=== PATIENT | female | born 1955 | race Caucasian/White ===

== ENCOUNTER 2020-10-14 16:39 | Outpatient (CLI) | payer OTHER, MEDICAID | END 2020-10-14 16:40 | disposition short-term general hospital (02) | LOC: EMS 16:39 | PROVIDERS: ATTEND Surgery | DX: R06.02 Shortness of breath (principal); R53.1 Weakness | CPT/HCPCS: A0425; A0427 ==

== ENCOUNTER 2023-03-30 19:29 | Emergency (ER) | payer MEDICAID, MEDICARE, OTHER ==
[2023-03-30 19:42] VITALS: BP 172/104
[2023-03-30] MEDS ORDERED: AMOX/CLAV 875 MG/125 MG TABLET PO STA (19:45)
[2023-03-30] MEDS ORDERED: BACITRACIN ZINC OINT 1 PACKET TOP STA (19:45)
[2023-03-30] MEDS ORDERED: TETANUS/DIPHTHERIA/PERTUSSIS 0.5 ML SYRINGE IM ONE (19:45)
--- NOTE | 2023-03-30 19:48 | ED Physician Documentation ---
History of Present Illness - Stated complaint Stated Complaint: LT/RT HAND DOG BITE - Chief complaint Chief Complaint: Laceration - Additonal information Additional information: 67-year-old female presents emergency department for evaluation of dog bites to both hands. She reports that she was walking her dog When another dog in the neighborhood which is a [place] short haired ran towards her dog and began to attack it. The dog then attacked her. The neighbor had to pull the dog off of her. She presents with dog bite puncture wounds mostly to the distal tips of both hands. Uncertain of last tetanus. She is right-hand dominant. Review of Systems Constitutional: reports: Reviewed and negative Skin: reports: Laceration (s) Musculoskeletal: reports: Extremity pain PD PAST MEDICAL HISTORY - Present Medications Home Medications: Ambulatory Orders Medication Instructions Recorded Confirmed Amox/Clav 875/125 [Augmentin] 1 each PO Q12H #14 tablet 03/30/23 Atorvastatin Calcium [Atorvaliq] 20 mg PO DAILY 03/30/23 03/30/23 Famotidine 40 mg PO DAILY 03/30/23 03/30/23 Losartan Potassium 25 mg PO DAILY 03/30/23 03/30/23 - Allergies Allergies/Adverse Reactions: Allergies Allergy/AdvReac Type Severity Reaction Status Date / Time No Known Drug Allergies Allergy Verified 03/30/23 19:39 PD ED PE EXPANDED - Extremities Extremities: Right hand (Superficial bite wounds on the dorsum of the right hand distal tip index finger and middle finger. Normal movement of the hand and fingers. 2+ radial pulse. NVI.), Left hand (V shaped lac on the dorsum of the left index finger just proximal to the cuticle. Surrounding swelling and ecchymosis. Patient does have preserved flexion extension at DIP joint.) Results - Vitals Vitals: Vital Signs - 24 hr 03/30/23 19:35 Temperature 3.0 C L Heart Rate 86 Respiratory 18 Rate Blood Pressure 172/104 H O2 Saturation 100 Oxygen O2 Source Room air - Rads (name of study) left hand xr Relevant Findings:: Final report received (No acute bony abnormality. No radiopaque foreign bodies) right hand xr Relevant Findings:: Final report received (No acute right hand fracture or dislocation. No radiopaque foreign bodies) Procedures - Laceration (location) ring finger left Wound type: Flap, Into subcut fat, Clean Neurovascular status: Sensory intact, Motor intact Tendon involvement: Tendon intact Anesthesia: Lidocaine 1% Wound preparation: Chlorhexadine, Irrigated copiously NS Skin layer closure: Interrupted, Size #-0 - enter number (4), Sutures - enter # (2) Other: Patient tolerated well, Tetanus booster given, Other (V-shaped lack on the dorsum left ring finger proximal to the cuticle was tacked down with 2 interrupted sutures) PD Medical Decision Making - ED course Complexity details: reviewed results, d/w patient ED course: 67-year-old female here with dog bite lacerations and puncture wounds to her hands after she was attacked this afternoon by neighbors dog. Animal control report has been made. Tetanus was updated today. X-rays reveal no obvious fractures and patient has preserved movement flexion extension of all digits. There is no evidence of tendon injury. Most significant wound was a V-shaped lack on the left index finger dorsum proximal to the cuticle. It was thoroughly cleansed and tacked down with 2 sutures. Her right hand has some more superficial bite and puncture wounds on the index and middle finger. Patient was given her first dose of Augmentin here and will be discharged with a week prescription. We discussed usual routine wound care and emergent return precautions for concerns of infection Departure - Departure Disposition: 01 Home, Self Care Clinical Impression: Open wound of left index finger due to dog bite, Open wound of right index finger due to dog bite Condition: Stable Record reviewed to determine appropriate education?: Yes Instructions: ED Bite Dog Prescriptions: Amox/Clav 875/125 [Augmentin] 1 each PO Q12H #14 tablet Comments: I am sorry that you were attacked by the dog today. An animal control report has been made. The dog bite wound on your ring finger left hand should have the sutures removed in 7 to 10 days. With regards to all your dog bite and puncture wounds I recommend that you gently wash them once daily with warm soap and water and then apply bacitracin ointment and a simple bandage. These will take 1 to 2 weeks to heal. Dog bite wounds and puncture wounds do carry a higher risk of infection. Therefore if you develop fevers, have increased redness milky drainage or any concerns of infection please return immediately to the ER. In order to help prevent infection we are starting you on an antibiotic, Augmentin, which she will take twice daily for the next week. Your first dose was given today in the ER. The prescription has been sent to [facility] in [place].
--- NOTE | 2023-03-30 20:16 | XRAY Report ---
PROCEDURE: Hand 2 View RT INDICATIONS: dog bite TECHNIQUE: 2 views of the hand(s) acquired. COMPARISON: None. FINDINGS: Bones: No acute fractures or dislocations. Old injury involving ulnar styloid tip is seen. No suspic ious bony lesions. Soft tissues: No suspicious soft tissue calcifications or masses. IMPRESSION: No acute right hip fracture or dislocation. No radiopaque foreign bodies. Reviewed by: Oscar Martin MD on 03/30/2023 8:15 PM PDT Approved by: Oscar Martin MD on 03/30/2023 8:15 PM PDT Station ID: [id number]
--- NOTE | 2023-03-30 20:16 | XRAY Report ---
PROCEDURE: Hand 2 View LT INDICATIONS: dog bite TECHNIQUE: 2 views of the hand(s) acquired. COMPARISON: None. FINDINGS: Bones: No fractures or dislocations. No suspicious bony lesions. Soft tissues: No suspicious soft tissue calcifications or masses. IMPRESSION: No acute bony abnormality. No radiopaque foreign bodies. Reviewed by: Oscar Martin MD on 03/30/2023 8:15 PM PDT Approved by: Oscar Martin MD on 03/30/2023 8:15 PM PDT Station ID: [id number]
== END 2023-03-30 20:00 | disposition home or self-care (01) ==
LOC: ED 19:29
DX: S61.211A Laceration without foreign body of left index finger without damage to nail, initial encounter (principal); S61.250A Open bite of right index finger without damage to nail, initial encounter; W54.0XXA Bitten by dog, initial encounter; Y93.K1 Activity, walking an animal
CPT/HCPCS: 12001; 73120; 90471; 90715; 99283; A9270

== ENCOUNTER 2023-05-23 14:07 | Outpatient (CLI) | payer MEDICARE ==
[2023-05-23 20:02] LABS: BASOPHILS # (AUTO) 0.1 10^3/uL (0.0-0.1); BASOPHILS % (AUTO) 0.8 %; EOSINOPHILS # (AUTO) 0.1 10^3/uL (0.0-0.7); HCT - HEMATOCRIT 38.6 % (37.0-47.0); HGB - HEMOGLOBIN 12.3 g/dL (12.0-16.0); LYMPHOCYTES # (AUTO) 1.9 10^3/uL (1.5-3.5); LYMPHOCYTES % (AUTO) 30.9 %; MEAN CORPUSCULAR HEMOGLOBIN 29.9 pg (27.0-31.0); MEAN CORPUSCULAR HGB CONC 31.9 g/dL (32.0-36.0); MEAN CORPUSCULAR VOLUME 93.9 fL (81.0-99.0); MEAN PLATELET VOLUME 10.3 fL (7.9-10.8); MONOCYTES # (AUTO) 0.7 10^3/uL (0.0-1.0); NEUTROPHILS # (AUTO) 3.3 10^3/uL (1.5-6.6); NEUTROPHILS % (AUTO) 54.1 %; PLT - PLATELET COUNT 241 10^3/uL (130-450); RED BLOOD COUNT 4.11 10^6/uL (4.20-5.40); RED CELL DISTRIBUTION WIDTH 12.4 % (12.0-15.0); WHITE BLOOD COUNT 6.1 x10^3/uL (4.8-10.8)
[2023-05-23 20:10] LABS: ALBUMIN 4.2 g/dL (3.2-5.5); ALBUMIN/GLOBULIN RATIO 1.8 (1.0-2.2); BILIRUBIN,TOTAL 0.2 mg/dL (0.2-1.0); CALCIUM 9.3 mg/dL (8.5-10.3); CREATININE 0.6 mg/dL (0.6-1.3); POTASSIUM 4.2 mmol/L (3.5-4.5); TOTAL PROTEIN 6.6 g/dL (6.4-8.9)
[2023-05-23 20:11] LABS: BILIRUBIN,URINE NEGATIVE (NEGATIVE); GLUCOSE, URINE (UA) NEGATIVE (NEGATIVE); KETONES,URINE (UA) NEGATIVE (NEGATIVE); LEUKOCYTE ESTERASE, URINE NEGATIVE (NEGATIVE); NITRITE,URINE NEGATIVE (NEGATIVE); OCCULT BLOOD,URINE NEGATIVE (NEGATIVE); PROTEIN,URINE NEGATIVE (NEGATIVE); UROBILINOGEN,URINE 0.2 (NORMAL) E.U./dL (NORMAL)
[2023-05-23 20:15] LABS: CLARITY,URINE CLOUDY (CLEAR)
[2023-05-23 20:32] LABS: RBC,URINE None Seen /HPF (0-5); SQUAMOUS EPITHELIAL CELL,UR RARE Squamous (<= Few); WBC,URINE 0-3 /HPF (0-5)
[2023-05-23 20:33] LABS: AMORPHOUS SEDIMENT,UR Marked /LPF; BACTERIA,URINE None Seen /HPF (None Seen)
== END 2023-05-23 14:08 | disposition home or self-care (01) ==
LOC: LAB.S 14:07
PROVIDERS: ATTEND Emergency Medicine
DX: R19.7 Diarrhea, unspecified (principal); R10.31 Right lower quadrant pain
CPT/HCPCS: 36415; 80053; 81001; 83690; 85025; 87086

== ENCOUNTER 2023-05-29 11:42 | Emergency (ER) | payer MEDICARE ==
[2023-05-29 12:11] LABS: BILIRUBIN,URINE NEGATIVE (NEGATIVE); GLUCOSE, URINE (UA) NEGATIVE (NEGATIVE); KETONES,URINE (UA) TRACE mg/dL (NEGATIVE); LEUKOCYTE ESTERASE, URINE NEGATIVE (NEGATIVE); NITRITE,URINE NEGATIVE (NEGATIVE); OCCULT BLOOD,URINE NEGATIVE (NEGATIVE); PH,URINE 6.5 PH (5.0-7.5); PROTEIN,URINE NEGATIVE (NEGATIVE); UROBILINOGEN,URINE 0.2 (NORMAL) E.U./dL (NORMAL)
[2023-05-29 12:19] LABS: CLARITY,URINE CLEAR (CLEAR)
[2023-05-29 12:25] LABS: BASOPHILS % (AUTO) 0.8 %; EOSINOPHILS # (AUTO) 0.1 10^3/uL (0.0-0.7); EOSINOPHILS % (AUTO) 1.9 %; HCT - HEMATOCRIT 38.3 % (37.0-47.0); HGB - HEMOGLOBIN 12.8 g/dL (12.0-16.0); LYMPHOCYTES # (AUTO) 1.5 10^3/uL (1.5-3.5); MEAN CORPUSCULAR HEMOGLOBIN 30.6 pg (27.0-31.0); MEAN CORPUSCULAR HGB CONC 33.4 g/dL (32.0-36.0); MEAN CORPUSCULAR VOLUME 91.6 fL (81.0-99.0); MEAN PLATELET VOLUME 9.6 fL (7.9-10.8); MONOCYTES # (AUTO) 0.5 10^3/uL (0.0-1.0); MONOCYTES % (AUTO) 10.2 %; NEUTROPHILS # (AUTO) 3.1 10^3/uL (1.5-6.6); NEUTROPHILS % (AUTO) 57.9 %; PLT - PLATELET COUNT 227 10^3/uL (130-450); RED BLOOD COUNT 4.18 10^6/uL (4.20-5.40); RED CELL DISTRIBUTION WIDTH 12.1 % (12.0-15.0); WHITE BLOOD COUNT 5.3 x10^3/uL (4.8-10.8)
--- OUTSIDE RECORDS SUMMARY | 2023-05-29 12:31 | EXTERNAL MEDICAL SUMMARY RPT | Continuity of Care Document ---
Author Name Unknown Address [address] [place] [address] Phone Organization [facility] Address [address] [place] [address] Phone Care Team Providers Care Make Ready Worker Name Role Phone Unavailable Unavailable Unavailable Maggie Lin, Unavailable Unavailable Ricki Mancini, Sean Unavailable Unavailable Kelvin Gilliam, Bonny Unavailable Unavailable Nurse, [facility] Unavailable Unavailab adan Serrano Rn, Unavailable Unavailable Nurse, [facility] Unavailable Unavailab adan Serrano Rn, Unavailable Unavailable Maggie Rn, Unavailable Unavailable Maggie Rn, Unavailable Unavailable Maggie Lin, Unavailable Unavailable Medications date description facility 2023-05-23 00:00 [facility] [place] 2023-05-24 00:00 [facility] [place] 2023-05-26 00:00 [facility]idine [facility] [place] 2023-05-26 00[facility]00 [facility]otidine [facility] [place] 2023-05-26 00:00 [facility]otidine [facility] [place] 2023-05-27 00[facility]00 [facility]otidine [facility] [place] 2023-05-27 00:00 [facility]otidine [facility] [place] 2023-05-27 00[facility]00 [facility]otidine [facility] [place] 2023-05-27 00[facility]00 [facility]idine [facility] [place] 2023-05-27 00:00 [facility]otidine [facility] [place] 2023-05-27 00:00 [facility]otidine [facility] [place] 2023-05-23 00:00 [facility] 2023-05-24 00:00 [facility]xyprogesterone [facility] 2023-05-26 00:00 [facility]xyprogesterone [facility] 2023-05-26 00:00 [facility]xyprogesterone [facility] 2023-05-26 00:00 [facility]xyprogesterone [facility] 2023-05-27 00:00 [facility]roxyprogesterone [facility] 2023-05-27 00:00 [facility]xyprogesterone [facility] 2023-05-27 00:00 [facility]xyprogesterone [facility] 2023-05-27 00:00 [facility]roxyprogesterone [facility] 2023-05-27 00:00 [facility]roxyprogesterone [facility] 2023-05-27 00:00 [facility]roxyprogesterone [facility] 2023-05-23 00:00 [facility]radiol [facility] 2023-05-24 00:00 estradiol [facility] 2023-05-26 00:00 estradiol [facility] 2023-05-26 00:00 estradiol [facility] 2023-05-26 00:00 estradiol [facility] 2023-05-27 00:00 estradiol [facility] 2023-05-27 00:00 estradiol [facility] 2023-05-27 00:00 estradiol [facility] 2023-05-27 00:00 estradiol [facility] 2023-05-27 00:00 estradiol [facility] 2023-05-27 00:00 estradiol [facility] 2023-05-23 00:00 [facility]xyprogesterone [facility] 2023-05-24 00:00 [facility]roxyprogesterone [facility] 2023-05-26 00:00 [facility]roxyprogesterone [facility] 2023-05-26 00:00 [facility]roxyprogesterone [facility] 2023-05-26 00:00 medroxyprogesterone [facility] 2023-05-27 00:00 medroxyprogesterone [facility] 2023-05-27 00:00 medroxyprogesterone [facility] 2023-05-27 00:00 medroxyprogesterone [facility] 2023-05-27 00:00 medroxyprogesterone [facility] 2023-05-27 00:00 medroxyprogesterone [facility] 2023-05-27 00:00 medroxyprogesterone [facility] 2023-05-23 00:00 medroxyprogesterone [facility] 2023-05-24 00:00 medroxyprogesterone [facility] 2023-05-26 00:00 medroxyprogesterone [facility] 2023-05-26 00:00 medroxyprogesterone [facility] 2023-05-26 00:00 medroxyprogesterone [facility] 2023-05-27 00:00 medroxyprogesterone [facility] 2023-05-27 00:00 medroxyprogesterone [facility] 2023-05-27 00:00 medroxyprogesterone [facility] 2023-05-27 00:00 medroxyprogesterone [facility] 2023-05-27 00:00 medroxyprogesterone [facility] 2023-05-27 00:00 medroxyprogesterone [facility] 2023-05-23 00:00 estradiol [facility] 2023-05-24 00:00 estradiol [facility] 2023-05-26 00:00 estradiol [facility] 2023-05-26 00:00 estradiol [facility] 2023-05-26 00:00 estradiol [facility] 2023-05-27 00:00 estradiol [facility] 2023-05-27 00:00 estradiol [facility] 2023-05-27 00:00 estradiol [facility] 2023-05-27 00:00 estradiol [facility] 2023-05-27 00:00 estradiol [facility] 2023-05-27 00:00 estradiol [facility] 2023-05-23 00[facility]00 [facility]zodone [facility] 2023-05-24 00:00 trazodone [facility] 2023-05-26 00:00 trazodone [facility] 2023-05-26 00:00 trazodone [facility] 2023-05-26 00:00 trazodone [facility] 2023-05-27 00:00 [facility]zodone [facility] 2023-05-27 00:00 trazodone [facility] 2023-05-27 00:00 trazodone [facility] 2023-05-27 00:00 trazodone [facility] 2023-05-27 00:00 trazodone [facility] 2023-05-27 00:00 trazodone [facility] 2023-05-23 00[facility]00 estradiol [facility] 2023-05-24 00:00 estradiol [facility] 2023-05-26 00:00 estradiol [facility] 2023-05-26 00:00 estradiol [facility] 2023-05-26 00:00 estradiol [facility] 2023-05-27 00:00 estradiol [facility] 2023-05-27 00:00 estradiol [facility] 2023-05-27 00:00 estradiol [facility] 2023-05-27 00:00 estradiol [facility] 2023-05-27 00:00 estradiol [facility] 2023-05-27 00:00 estradiol [facility] 2023-05-23 00:00 medroxyprogesterone [facility] 2023-05-24 00:00 medroxyprogesterone [facility] 2023-05-26 00:00 medroxyprogesterone [facility] 2023-05-26 00:00 medroxyprogesterone [facility] 2023-05-26 00:00 medroxyprogesterone [facility] 2023-05-27 00:00 medroxyprogesterone [facility] 2023-05-27 00:00 medroxyprogesterone [facility] 2023-05-27 00:00 medroxyprogesterone [facility] 2023-05-27 00:00 medroxyprogesterone [facility] 2023-05-27 00:00 medroxyprogesterone [facility] 2023-05-27 00:00 medroxyprogesterone [facility] 2023-05-23 00:00 estradiol [facility] 2023-05-24 00:00 estradiol [facility] 2023-05-26 00:00 estradiol [facility] 2023-05-26 00:00 estradiol [facility] 2023-05-26 00:00 estradiol [facility] 2023-05-27 00:00 estradiol [facility] 2023-05-27 00:00 estradiol [facility] 2023-05-27 00:00 estradiol [facility] 2023-05-27 00:00 estradiol [facility] 2023-05-27 00:00 estradiol [facility] 2023-05-27 00:00 estradiol [facility] 2023-05-23 00:00 famotidine [facility] 2023-05-24 00:00 [facility]otidine [facility] 2023-05-26 00:00 [facility]otidine [facility] 2023-05-26 00:00 [facility]otidine [facility] 2023-05-26 00[facility]00 [facility]idine [facility] [place] 2023-05-27 00:00 famotidine [facility] [place] 2023-05-27 00:00 famotidine [facility] [place] 2023-05-27 00:00 famotidine [facility] [place] 2023-05-27 00:00 famotidine [facility] [place] 2023-05-27 00:00 famotidine [facility] [place] 2023-05-27 00:00 famotidine [facility] [place] 2023-05-23 00:00 famotidine [facility] [place] 2023-05-24 00:00 famotidine [facility] [place] 2023-05-26 00:00 famotidine [facility] [place] 2023-05-26 00:00 famotidine [facility] [place] 2023-05-26 00:00 famotidine [facility] [place] 2023-05-27 00:00 famotidine [facility] [place] 2023-05-27 00:00 famotidine [facility] [place] 2023-05-27 00:00 famotidine [facility] [place] 2023-05-27 00:00 famotidine [facility] [place] 2023-05-27 00:00 famotidine [facility] [place] 2023-05-27 00:00 famotidine [facility] [place] 2023-05-23 00:00 pantoprazole [facility] [place] 2023-05-24 00:00 pantoprazole [facility] [place] 2023-05-26 00:00 pantoprazole [facility] [place] 2023-05-26 00:00 pantoprazole [facility] [place] 2023-05-26 00:00 pantoprazole [facility] [place] 2023-05-27 00:00 pantoprazole [facility] [place] 2023-05-27 00:00 pantoprazole [facility] [place] 2023-05-27 00:00 pantoprazole [facility] [place] 2023-05-27 00:00 pantoprazole [facility] [place] 2023-05-27 00:00 pantoprazole [facility] [place] 2023-05-27 00:00 pantoprazole [facility] [place] 2023-05-23 00:00 losartan [facility] [place] 2023-05-24 00:00 losartan [facility] [place] 2023-05-26 00:00 losartan [facility] [place] 2023-05-26 00:00 losartan [facility] [place] 2023-05-26 00:00 losartan [facility] [place] 2023-05-27 00:00 losartan [facility] [place] 2023-05-27 00:00 losartan [facility] [place] 2023-05-27 00:00 losartan [facility] [place] 2023-05-27 00:00 losartan [facility] [place] 2023-05-27 00:00 losartan [facility] [place] 2023-05-27 00:00 losartan [facility] [place] 2023-05-23 00[facility]00 atorvastatin [facility] [place] 2023-05-24 00:00 atorvastatin [facility] [place] 2023-05-26 00:00 atorvastatin [facility] [place] 2023-05-26 00:00 atorvastatin [facility] [place] 2023-05-26 00:00 atorvastatin [facility] [place] 2023-05-27 00:00 atorvastatin [facility] [place] 2023-05-27 00:00 atorvastatin [facility] [place] 2023-05-27 00:00 atorvastatin [facility] [place] 2023-05-27 00:00 atorvastatin [facility] [place] 2023-05-27 00:00 atorvastatin [facility] [place] 2023-05-27 00:00 atorvastatin [facility] [place] 2023-05-23 00[facility]00 losartan [facility] [place] 2023-05-24 00:00 losartan [facility] [place] 2023-05-26 00:00 losartan [facility] [place] 2023-05-26 00:00 losartan [facility] [place] 2023-05-26 00:00 losartan [facility] [place] 2023-05-27 00:00 losartan [facility] [place] 2023-05-27 00:00 losartan [facility] [place] 2023-05-27 00:00 losartan [facility] [place] 2023-05-27 00:00 losartan [facility] [place] 2023-05-27 00:00 losartan [facility] [place] 2023-05-27 00:00 losartan [facility] [place] 2023-05-23 00:00 atorvastatin [facility] [place] 2023-05-24 00:00 atorvastatin [facility] [place] 2023-05-26 00:00 atorvastatin [facility] [place] 2023-05-26 00:00 atorvastatin [facility] [place] 2023-05-26 00:00 atorvastatin [facility] [place] 2023-05-27 00:00 atorvastatin [facility] [place] 2023-05-27 00:00 atorvastatin [facility] [place] 2023-05-27 00:00 atorvastatin [facility] [place] 2023-05-27 00:00 atorvastatin [facility] [place] 2023-05-27 00:00 atorvastatin [facility] [place] 2023-05-27 00:00 atorvastatin [facility] [place] 2023-05-23 00:00 famotidine [facility] [place] 2023-05-24 00:00 famotidine [facility] [place] 2023-05-26 00:00 famotidine [facility] [place] 2023-05-26 00:00 famotidine [facility] [place] 2023-05-26 00:00 famotidine [facility] [place] 2023-05-27 00:00 famotidine [facility] [place] 2023-05-27 00:00 famotidine [facility] [place] 2023-05-27 00:00 famotidine [facility] [place] 2023-05-27 00:00 famotidine [facility] [place] 2023-05-27 00:00 famotidine [facility] [place] 2023-05-27 00:00 famotidine [facility] [place] 2023-05-23 00:00 pantoprazole [facility] [place] 2023-05-24 00:00 pantoprazole [facility] [place] 2023-05-26 00:00 pantoprazole [facility] [place] 2023-05-26 00:00 pantoprazole [facility] [place] 2023-05-26 00:00 pantoprazole [facility] [place] 2023-05-27 00:00 pantoprazole [facility] [place] 2023-05-27 00:00 pantoprazole [facility] [place] 2023-05-27 00:00 pantoprazole [facility] [place] 2023-05-27 00:00 pantoprazole [facility] [place] 2023-05-27 00:00 pantoprazole [facility] [place] 2023-05-27 00:00 pantoprazole [facility] [place] 2023-05-23 00:00 trazodone [facility] [place] 2023-05-24 00:00 trazodone [facility] [place] 2023-05-26 00:00 trazodone [facility] [place] 2023-05-26 00:00 trazodone [facility] [place] 2023-05-26 00:00 trazodone [facility] [place] 2023-05-27 00:00 trazodone [facility] [place] 2023-05-27 00:00 trazodone [facility] [place] 2023-05-27 00:00 trazodone [facility] [place] 2023-05-27 00:00 trazodone [facility] [place] 2023-05-27 00:00 trazodone [facility] [place] 2023-05-27 00:00 trazodone [facility] [place] 2023-05-23 00:00 pantoprazole [facility] [place] 2023-05-24 00:00 pantoprazole [facility] [place] 2023-05-26 00:00 pantoprazole [facility] [place] 2023-05-26 00:00 pantoprazole [facility] [place] 2023-05-26 00:00 pantoprazole [facility] [place] 2023-05-27 00:00 pantoprazole [facility] [place] 2023-05-27 00:00 pantoprazole [facility] [place] 2023-05-27 00:00 pantoprazole [facility] [place] 2023-05-27 00:00 pantoprazole [facility] [place] 2023-05-27 00:00 pantoprazole [facility] [place] 2023-05-27 00:00 pantoprazole [facility] [place] 2023-05-23 00:00 trazodone [facility] [place] 2023-05-24 00:00 trazodone [facility] [place] 2023-05-26 00:00 trazodone [facility] [place] 2023-05-26 00:00 trazodone [facility] [place] 2023-05-26 00:00 trazodone [facility] [place] 2023-05-27 00:00 trazodone [facility] [place] 2023-05-27 00:00 trazodone [facility] [place] 2023-05-27 00:00 trazodone [facility] [place] 2023-05-27 00:00 trazodone [facility] [place] 2023-05-27 00:00 trazodone [facility] [place] 2023-05-27 00:00 trazodone [facility] [place] 2023-05-23 00:00 pantoprazole [facility] [place] 2023-05-24 00:00 pantoprazole [facility] [place] 2023-05-26 00:00 pantoprazole [facility] [place] 2023-05-26 00:00 pantoprazole [facility] [place] 2023-05-26 00:00 pantoprazole [facility] [place] 2023-05-27 00:00 pantoprazole [facility] [place] 2023-05-27 00:00 pantoprazole [facility] [place] 2023-05-27 00:00 pantoprazole [facility] [place] 2023-05-27 00:00 pantoprazole [facility] [place] 2023-05-27 00:00 pantoprazole [facility] [place] 2023-05-27 00:00 pantoprazole [facility] [place] 2023-05-23 00:00 atorvastatin [facility] [place] 2023-05-24 00:00 atorvastatin [facility] [place] 2023-05-26 00:00 atorvastatin [facility] [place] 2023-05-26 00:00 atorvastatin [facility] [place] 2023-05-26 00:00 atorvastatin [facility] [place] 2023-05-27 00:00 atorvastatin [facility] [place] 2023-05-27 00:00 atorvastatin [facility] [place] 2023-05-27 00:00 atorvastatin [facility] [place] 2023-05-27 00:00 atorvastatin [facility] [place] 2023-05-27 00:00 atorvastatin [facility] [place] 2023-05-27 00:00 atorvastatin [facility] [place] 2023-05-23 00:00 atorvastatin [facility] [place] 2023-05-24 00:00 atorvastatin [facility] [place] 2023-05-26 00:00 atorvastatin [facility] [place] 2023-05-26 00:00 atorvastatin [facility] [place] 2023-05-26 00:00 atorvastatin [facility] [place] 2023-05-27 00:00 atorvastatin [facility] [place] 2023-05-27 00:00 atorvastatin [facility] [place] 2023-05-27 00:00 atorvastatin [facility] [place] 2023-05-27 00:00 atorvastatin [facility] [place] 2023-05-27 00:00 atorvastatin [facility] [place] 2023-05-27 00:00 atorvastatin [facility] [place] 2023-05-23 00:00 losartan [facility]In [facility] [place] 2023-05-24 00:00 losartan [facility] [place] 2023-05-26 00:00 losartan [facility] [place] 2023-05-26 00:00 losartan [facility] [place] 2023-05-26 00:00 losartan [facility] [place] 2023-05-27 00:00 losartan [facility] [place] 2023-05-27 00:00 losartan [facility] [place] 2023-05-27 00:00 losartan [facility] [place] 2023-05-27 00:00 losartan [facility] [place] 2023-05-27 00:00 losartan [facility] [place] 2023-05-27 00:00 losartan [facility] [place] 2023-05-23 00:00 trazodone [facility] [place] 2023-05-24 00:00 trazodone [facility] [place] 2023-05-26 00:00 trazodone [facility] [place] 2023-05-26 00:00 trazodone [facility] [place] 2023-05-26 00:00 trazodone [facility] [place] 2023-05-27 00:00 trazodone [facility] [place] 2023-05-27 00:00 trazodone [facility] [place] 2023-05-27 00:00 trazodone [facility] [place] 2023-05-27 00:00 trazodone [facility] [place] 2023-05-27 00:00 trazodone [facility] [place] 2023-05-27 00:00 trazodone [facility] [place] 2023-05-23 00:00 losartan [facility] [place] 2023-05-24 00:00 losartan [facility] [place] 2023-05-26 00:00 losartan [facility] [place] 2023-05-26 00:00 losartan [facility] [place] 2023-05-26 00:00 losartan [facility] [place] 2023-05-27 00:00 losartan [facility] [place] 2023-05-27 00:00 losartan [facility] [place] 2023-05-27 00:00 losartan [facility] [place] 2023-05-27 00:00 losartan [facility] [place] 2023-05-27 00:00 losartan [facility] [place] 2023-05-27 00:00 losartan [facility] [place] Problems date description facility 2023-05-23 00:00 Abdominal pain, righ t lower quadrant [facility] [place] 2023-05-23 00:00 Abdominal pain, righ t lower quadrant [facility] [place] 2023-05-23 00:00 Abdominal pain, righ t lower quadrant [facility] [place] 2023-05-23 00:00 Abdominal pain, righ t lower quadrant [facility] [place] 2023-05-23 00:00 Abdominal pain, righ t lower quadrant [facility] [place] 2023-05-23 00:00 Abdominal pain, righ t lower quadrant [facility] [place] 2023-05-23 00:00 Abdominal pain, righ t lower quadrant [facility] [place] 2023-05-23 00:00 Abdominal pain, righ t lower quadrant [facility] [place] 2023-05-23 00:00 Abdominal pain, righ t lower quadrant [facility] [place] 2023-05-23 00:00 Abdominal pain, righ t lower quadrant [facility] [place] 2023-05-23 00:00 Right lower quadrant pain [facility] [place] 2023-05-23 00:00 Right lower quadrant pain [facility] [place] 2023-05-23 00:00 Right lower quadrant pain [facility] [place] 2023-05-23 00:00 Right lower quadrant pain [facility] [place] 2023-05-23 00:00 Right lower quadrant pain [facility] [place] 2023-05-23 00:00 Right lower quadrant pain [facility] [place] 2023-05-23 00:00 Right lower quadrant pain [facility] [place] 2023-05-23 00:00 Right lower quadrant pain [facility] [place] 2023-05-23 00:00 Right lower quadrant pain [facility] [place] 2023-05-23 00:00 Right lower quadrant pain [facility] [place] Procedures date description facility 2023-05-23 00:00 Visit Code Hold [facility] [place] 2023-05-23 00:00 Visit Code Hold [facility] [place] 2023-05-23 00:00 Visit Code Hold [facility] [place] 2023-05-23 00:00 Visit Code Hold [facility] [place] 2023-05-23 00:00 Visit Code Hold [facility] [place] 2023-05-23 00:00 Visit Code Hold [facility] [place] 2023-05-23 00:00 Visit Code Hold [facility] [place] 2023-05-23 00:00 Visit Code Hold [facility] [place] 2023-05-23 00:00 Visit Code Hold [facility] [place] 2023-05-23 00:00 Visit Code Hold [facility] [place] 2023-05-23 00:00 POC URINALYSIS DIP [facility] [place] 2023-05-23 00:00 POC URINALYSIS DIP [facility] [place] 2023-05-23 00:00 POC URINALYSIS DIP [facility] [place] 2023-05-23 00:00 POC URINALYSIS DIP [facility] [place] 2023-05-23 00:00 POC URINALYSIS DIP [facility] [place] 2023-05-23 00:00 POC URINALYSIS DIP [facility] [place] 2023-05-23 00:00 POC URINALYSIS DIP [facility] [place] 2023-05-23 00:00 POC URINALYSIS DIP [facility] [place] 2023-05-23 00:00 POC URINALYSIS DIP [facility] [place] 2023-05-23 00:00 POC URINALYSIS DIP [facility] [place] Results/Labs test date facility value unit notes Social History date description facility 2023-05-23 00:00 Never smoker [facility] [place] 2023-05-23 00:00 Never smoker [facility] [place] 2023-05-23 00:00 Never smoker [facility] [place] 2023-05-23 00:00 Never smoker [facility] [place] 2023-05-23 00:00 Never smoker [facility] [place] 2023-05-23 00:00 Never smoker [facility] [place] 2023-05-23 00:00 Never smoker [facility] [place] 2023-05-23 00:00 Never smoker [facility] [place] 2023-05-23 00:00 Never smoker [facility] [place] 2023-05-23 00:00 Never smoker [facility] [place] Vital Signs date measurement value units 2023-05-23 00:00 BMI 28.04 kg/m2 2023-05-23 00:00 BP_diastolic 79 mmHg 2023-05-23 00:00 BP_systolic 153 mmHg 2023-05-23 00:00 heart_rate 63 /min 2023-05-23 00:00 height_metric 170.18 cm 2023-05-23 00:00 height_standard 67 in 2023-05-23 00:00 respiration_rate 17 /min 2023-05-23 00:00 temperature_metric 36.78 C 2023-05-23 00:00 temperature_standard 98.2 F 2023-05-23 00:00 weight_metric 80.92 kg 2023-05-23 00:00 weight_standard 178.4 lb
--- NOTE | 2023-05-29 12:42 | ED Physician Documentation ---
PD HPI ABD PAIN - Stated complaint Stated Complaint: ABD/LOW BACK PX - Chief complaint Chief Complaint: Abd Pain - History obtained from History obtained from: Patient - History of Present Illness Timing - onset: How many weeks ago (2) Timing - duration: Weeks (2) Timing - details: Gradual onset, Still present, Waxing and waning Quality: Cramping, Aching, Pain Location: LLQ Radiation: No: Left flank Associated symptoms: Nausea. No: Fever, Diarrhea (but has had some softer stool interposed with firm. No noted blood, melena, nor mucous.), Dysuria, Loss of appetite Recently seen: Clinic (seen at [facility] ago with labs done. Went to [facility] and had labs/urine tests done. She went to PMD yesteday and on exam, the presumed Dx was diverticulitis. Can get CT to see if is that, as patient says she is uncertain about taking meds withot more certain etiology.) Review of Systems Constitutional: reports: Myalgias, Fatigue. denies: Fever, Chills Throat: denies: Sore throat Respiratory: denies: Dyspnea, Cough GI: reports: Abdominal Pain, Nausea. denies: Vomiting, Diarrhea PD PAST MEDICAL HISTORY - Past Medical History Cardiovascular: Hypertension, High cholesterol Respiratory: None - Past Surgical History Past Surgical History: No - Present Medications Home Medications: Ambulatory Orders Medication Instructions Recorded Confirmed Atorvastatin Calcium [Atorvaliq] 20 mg PO DAILY 03/30/23 05/29/23 Famotidine 40 mg PO DAILY 03/30/23 05/29/23 Losartan Potassium 25 mg PO DAILY 03/30/23 05/29/23 - Allergies Allergies/Adverse Reactions: Allergies Allergy/AdvReac Type Severity Reaction Status Date / Time No Known Drug Allergies Allergy Verified 05/29/23 11:47 PD ED PE NORMAL - Vitals Vital signs reviewed: Yes - General General: Alert and oriented X 3, No acute distress, Well developed/nourished - Cardiac Cardiac: RRR, No murmur - Respiratory Respiratory: Clear bilaterally - Abdomen Abdomen: Soft, Non tender - Derm Derm: Normal color, Warm and dry - Neuro Neuro: Alert and oriented X 3, No motor deficit, Normal speech Results - Vitals Vitals: Vital Signs - 24 hr 05/29/23 05/29/23 11:47 15:06 Temperature 36.8 C 36.1 C L Heart Rate 74 61 Respiratory 18 16 Rate Blood Pressure 160/85 H 162/99 H O2 Saturation 98 100 Oxygen O2 Source Room air - Labs Labs: Laboratory Tests 05/29/23 05/29/23 05/29/23 12:00 12:15 12:15 WBC 5.3 RBC 4.18 L Hgb 12.8 Hct 38.3 MCV 91.6 MCH 30.6 MCHC 33.4 RDW 12.1 Plt Count 227 MPV 9.6 Neut # (Auto) 3.1 Lymph # (Auto) 1.5 [place] # (Auto) 0.5 Eos # (Auto) 0.1 Baso # (Auto) 0.0 Absolute Nucleated RBC 0.00 Nucleated RBC % 0.0 Sodium 138 Potassium 3.8 Chloride 103 Carbon Dioxide 31 Anion Gap 4.0 L BUN 17 Creatinine 0.7 Estimated GFR (MDRD) 83 L Glucose 121 H Calcium 9.2 Total Bilirubin 0.4 AST 14 ALT 11 Alkaline Phosphatase 49 Total Protein 6.6 Albumin 4.2 Globulin 2.4 Albumin/Globulin Ratio 1.8 Lipase 37 Urine Color YELLOW Urine Clarity CLEAR Urine pH 6.5 Ur Specific Artesian 1.020 Urine Protein NEGATIVE Urine Glucose (UA) NEGATIVE Urine Ketones TRACE Urine Occult Blood NEGATIVE Urine Nitrite NEGATIVE Urine Bilirubin NEGATIVE Urine Urobilinogen 0.2 (NORMAL) Ur Leukocyte Esterase NEGATIVE Ur Microscopic Review NOT INDICATED Urine Culture Comments NOT INDICATED - Rads (name of study) abd/pelvic CT Relevant Findings:: Prelim report reviewed (diverticulosis but no apparent diverticulitis. Noted is 8 mm nodule on adrenal area. No other acute process. ), EMP independent interpretation of test PD Medical Decision Making - ED course Complexity details: reviewed results, considered differential (left lower abd pain and cramps for a week or more. Clinic and PMD presumed diverticulitis and were going to empirically treat. Pt unsure of taking meds without more clear diagnosis and the pain was more cnsistent today.), d/w patient Departure - Departure Disposition: Home, Self Care Clinical Impression: Left lower quadrant abdominal pain, Adrenal nodule, Diverticula of intestine Condition: Stable Record reviewed to determine appropriate education?: Yes Instructions: ED Abdominal Pain Female Non-Specific Abdominal Pain Comments: Your CT scan showed some diverticula but no obvious inflammatory changes. However there could be some mild diverticulitis that end and some percentage will not show up on the CT scan. At least there is no significant diverticulitis's (swelling and inflammation of the intestinal wall). No other abnormalities seen to account for the pain. Incidental finding is a small nodule in the left adrenal. Follow-up with your primary care and see if any prior imaging such as the CT from [facility] a year or so ago has shown this to be present. Main issue is that its not enlarging or changing. If it is new, then it would likely want to be followed at an interval of time to look for further progression. It would not be causative of your pain right now. Presuming some intestinal wall irritation, I would suggest staying well-hydrated and adding a mild stool softener such as docusate sodium 100 mg daily. Continue with your fiber. Add an anti-inflammatory such as ibuprofen 800 mg 2-3 times daily with food for the next 5 or 6 days. Add Tylenol every 4-6 hours if needed for pain. At this point there is not an obvious infectious component. You could see how you do with the above interventions over the next couple of days and if not improving or worsening then at the prescribed antibiotic. Alternatively could add the prescribed antibiotic along with some probiotics and just see if you improve over the next few days. Forms: PCP List Discharge Date/Time: 05/29/23 15:27
[2023-05-29 12:50] LABS: ALBUMIN 4.2 g/dL (3.2-5.5); ALBUMIN/GLOBULIN RATIO 1.8 (1.0-2.2); BILIRUBIN,TOTAL 0.4 mg/dL (0.2-1.0); CALCIUM 9.2 mg/dL (8.5-10.3); CREATININE 0.7 mg/dL (0.6-1.3); POTASSIUM 3.8 mmol/L (3.5-4.5); TOTAL PROTEIN 6.6 g/dL (6.4-8.9)
[2023-05-29] MEDS ORDERED: KETOROLAC 15 MG/ML VIAL IVP STA (13:00)
--- NOTE | 2023-05-29 14:45 | CT Report ---
PROCEDURE: ABDOMEN/PELVIS W INDICATIONS: lower abd/left pain for a week, worsening CONTRAST: Opti 320 100ml TECHNIQUE: After the administration of IV contrast, 5 mm thick sections acquired from the diaphragms to the symp hysis. 5 mm thick coronal and sagittal reformats were acquired. For radiation dose reduction, the f ollowing was used: automated exposure control, adjustment of mA and/or kV according to patient size. COMPARISON: None FINDINGS: Image quality: Excellent. Lung bases and heart: Unremarkable. Liver: Liver is enlarged measuring 19.7 cm with steatosis. Gallbladder and biliary tree: Unremarkable Spleen: No splenomegaly. Pancreas: No pancreatic ductal dilation. Adrenals: 8 mm left adrenal nodule. Kidneys and ureters: No hydronephrosis. No renal cystic lesion which requires follow up. No solid mas s. Bowel and peritoneum: No bowel distension. No pathologic free fluid. Colonic diverticula are present without associated inflammatory change. Appendix is normal. Lymph nodes: No central or retroperitoneal adenopathy. Vessels: No infrarenal aortic aneurysm. PELVIS Reproductive organs: Unremarkable. Bladder: No abnormal wall thickening, accounting for underdistension. Pelvic lymph nodes: No pelvic adenopathy by size criteria. Bones: No aggressive osseous abnormality. Other: No significant ventral or inguinal hernia. Bilateral breast implants are present. Hiatal herni a is present. IMPRESSION: No acute intra-abdominal or pelvic process. Indeterminate 8 mm left adrenal nodule. No priors are available for comparison. Recommend interval fo llow-up with CT/MRI with adrenal protocol as clinically indicated. Diverticulosis. Reviewed by: Naomy Crawford MD on 05/29/2023 2:44 PM PDT Approved by: Naomy Crawford MD on 05/29/2023 2:44 PM PDT Station ID: [id number]
[2023-05-29 15:11] VITALS: BP 162/99; O2SAT 100
[2023-05-29] MEDS ORDERED: IOVERSOL 320 100 ML VIAL IVP ONE (19:38)
== END 2023-05-29 15:27 | disposition home or self-care (01) ==
LOC: ED 11:42
DX: E27.8 Other specified disorders of adrenal gland (principal); K57.30 Diverticulosis of large intestine without perforation or abscess without bleeding
CPT/HCPCS: 36415; 74177; 80053; 81003; 83690; 85025; 96374; 99284; Q9967; 81001; 87086